=== PATIENT | male | born 1980 | race Caucasian/White ===

== ENCOUNTER 2021-07-22 12:33 | Emergency (ER) | payer MEDICAID ==
[~2021-07-22] VITALS: Ht 185.4 cm; Wt 85.5 kg
[2021-07-22 13:59] VITALS: BP 137/66
== END 2021-07-22 14:50 | disposition home or self-care (01) ==
LOC: EMS 12:33
DX: S93.402A Sprain of unspecified ligament of left ankle, initial encounter (principal); F17.210 Nicotine dependence, cigarettes, uncomplicated; X58.XXXA Exposure to other specified factors, initial encounter; Y93.89 Activity, other specified; Y92.89 Other specified places as the place of occurrence of the external cause; Y99.8 Other external cause status
CPT/HCPCS: 29515; 99283